=== PATIENT | male | born 1965 | race Caucasian/White ===

== ENCOUNTER 2024-04-23 17:40 | Emergency (ER) | payer BC, SELFPAY ==
[2024-04-23 17:40] VITALS: BMI 30.9
[2024-04-23 17:41] VITALS: BP 187/102
--- NOTE | 2024-04-23 18:11 | ED.GENMED ---
History of Present Illness
General
Chief Complaint: Musculo-Skeletal Complaint
Source: patient
Exam Limitations: none
Time Seen by Provider: 04/23/24 18:04
History of Present Illness
History of Present Illness:
See MDM
Past History
Past History
ED Past Medical History: COPD and NIDDM
ED Past Surgical History: None
Social History
Tobacco: Non-smoker
Alcohol: None
Phy Exam
Physical Exam
Physical Exam:
See MDM
Course
Orders/Labs/Results
Orders:
Orders
04/23/24 17:45
CR Ankle - Right Min 3 Views * Urgent
Comment:
Reason For Exam: injury
04/23/24 18:25
Ketorolac [Toradol] 10 mg PO NOW STA
Vital Signs
Initial and Last Documented VS:
Initial Vital Signs
Temp Pulse Resp BP Pulse Ox
97.4 F 92 18 187/102 97
04/23/24 17:41 04/23/24 17:41 04/23/24 17:41 04/23/24 17:41 04/23/24 17:41
Last Documented Vital Signs
Temp Pulse Resp BP Pulse Ox
97.4 F 92 18 187/102 97
04/23/24 17:41 04/23/24 17:41 04/23/24 17:41 04/23/24 17:41 04/23/24 17:41
MDM/Problems Addressed
Differential Diagnosis Includes:
HPI and MDM Narrative:
59-year-old male presenting with right ankle pain. Patient stepped in a hole that his horses made and he twisted his ankle and felt a crack. Patient noticed swelling to that area. Denies numbness or tingling
X-ray was done prior to my evaluation showing evidence of a distal fibular fracture. On my exam, there is mild swelling to the right lateral malleolus but the extremity is otherwise neurovascularly intact. Ankle joint is stable
Will start NSAIDs and place in a boot discussed follow-up with podiatry
Physical exam
General: Well appearing and non-toxic
HEENT: protecting airway
Neck: appears supple
CV: No evidence of cyanosis
Resp: No accessory muscle use
Abd: Non-distended
Extremities: Swelling and tenderness to right lateral malleolus. Ankle joint stable. Distal extremity neurovascular intact
Neuro: alert
Psych: Normal affect
Skin: Intact
Problems Addressed including Acute and Chronic Conditions affecting care:
1. Right distal fibular fracture
Acuity: acute
Prognosis: stable
Details: Joint spaces stable. Will place in a boot discussed follow-up with podiatry
Differential Diagnosis (but not limited to): Ankle sprain, ankle fracture
Testing considered: Tib-fib x-ray
Drug therapy (if applicable): OTC meds, please see d/c instruction regarding Rx drugs
Amount and/or Complexity of Data Reviewed
Clinical info obtained from: Patient
External data reviewed: N/A
Labs I independently reviewed (but not limited to): N/A
Radiology: X-ray independently reviewed: Nondisplaced distal fibula fracture
Pulse Ox: not hypoxic
EKG independently reviewed: N/A
Vacuum Cleaner Operator: N/A
Critical Care: N/A
Risk of Complication:
Social Determinants of health: Good social support
Discussed with other providers: N/A
Escalation of Care includes Admit/Obs: After being observed in the Emergency Department, pt stable for discharge.
Occasional wrong word or 'sound a like' substitutions may have occurred due to the inherent limitations of voice recognition software. Read the chart carefully and recognize, using context, where substitutions have occurred.
*Critical Care Note
Total Time (30-74mins, 75-104mins- exclusive of procedures): Not Applicable
ED Attending Note
-
Portions of this chart may have been created with voice recognition software.� Occasional wrong word or��sound alike� substitutions may have occurred due to the inherent limitations of voice recognition software.
Discharge Plan
Departure
Patient Disposition: Home (Routine Discharge)
Date of Disposition: 04/23/24
Time of Disposition: 18:15
Patient with high blood pressure during this ER visit?: Yes
Discharge Problem:
Fracture of ankle, right, closed
Instructions: BLOOD PRESSURE, RICE Therapy
Prescriptions:
New
diclofenac potassium 50 mg tablet
50 mg PO BID Qty: 20 0RF
No Action
metformin 500 mg Tablet
500 mg PO DAILY
polyethylene glycol 3350 17 gram Powder In Packet
17 g PO DAILY 14 Days Qty: 14 0RF
amoxicillin-pot clavulanate 875-125 mg tablet
1 tab PO Q12H 10 Days Qty: 20 0RF
amoxicillin-pot clavulanate 875-125 mg tablet
1 tab PO Q12H Qty: 19 0RF
Referrals:
Swapnil Bishop DPM [Active] -
Activity Restrictions/Additional Instructions:
Please return for any worsening symptoms.
You may return at any time if you have further concerns.
Please make an appointment to see the biodiesel plant superintendent at the orthopedic office.
Thank you for choosing [facility].
Interventions
Interventions:
*Risk Screen - Suicide Last Done: 04/23/24 17:41
*General Assessment Last Done: 04/23/24 17:41
*Neglect/Abuse Screening Last Done: 04/23/24 18:21
ED- Fall Risk Assessment Last Done: 04/23/24 18:22
*ED COVID-19 Vaccine History Last Done: 04/23/24 17:41
ED-Musculoskeletal Assessment Last Done: 04/23/24 18:22
Discharge Date and Time
Print Language: JORDANIAN
[2024-04-23] MEDS: TORADOL 10 MG PO (18:52)
== END 2024-04-23 19:02 | disposition home or self-care (01) ==
LOC: EMR 17:40
PROVIDERS: EMERGENCY PHYSICIAN Student in an Organized Health Care Education/Training Program; FAMILY PHYSICIAN Family Medicine
DX: S82.831A Other fracture of upper and lower end of right fibula, initial encounter for closed fracture (principal); X50.1XXA Overexertion from prolonged static or awkward postures, initial encounter; E11.9 Type 2 diabetes mellitus without complications; J44.9 Chronic obstructive pulmonary disease, unspecified
CPT/HCPCS: 99283; 73610